=== PATIENT | male | born 1960 | race African-American/Black ===

== ENCOUNTER → 2021-03-20 | Outpatient (CLI) | payer BC ==
--- NOTE | 2021-03-20 11:42 | KCIC ---
EXAM: Abdomen sonogram. HISTORY: Pain. TECHNIQUE: Magnetic imaging of the abdomen was performed. COMPARISON: None. FINDINGS: The liver is enlarged. There is hepatic steatosis. There is a 2.0 x 1.8 x 1.4 cm hypoechoic lesion within the liver adjacent to the gallbladder fossa. No additional focal hepatic lesion is see n. The gallbladder is unremarkable. The common bile duct is obscured. The kidneys are normal in size. There is no hydronephrosis. There is a 1.8 cm suspected cyst within the mid zone of the left kidney. The spleen is normal in size. The pancreas, aorta and inferior vena cava are predominantly obscured due to bowel gas and body habitus. IMPRESSION: 1. Hepatomegaly and hepatic steatosis. 2. 2.0 cm hypoechoic lesion within the liver adjacent to the gallbladder fossa. This may be due to ge ographic fatty deposition. However, the possibility of neoplasm is not excluded sonographically. This can be better assessed with a liver protocol CT or MRI. 3. Small renal cysts. Follow-up is not routinely performed for simple cysts. 4. Obscured common bile duct and predominantly obscured midline structures due to bowel gas and body habitus. Electronically signed by: Mela Pope MD (03/20/2021 11:40 AM) [id number]
== END ==
LOC: KCIC US 10:21
PROVIDERS: ATTEND Family Medicine
DX: R16.0 Hepatomegaly, not elsewhere classified (principal); K76.0 Fatty (change of) liver, not elsewhere classified; K76.9 Liver disease, unspecified; N28.1 Cyst of kidney, acquired; K83.8 Other specified diseases of biliary tract; R10.84 Generalized abdominal pain
CPT/HCPCS: 76700

== ENCOUNTER → 2021-03-28 | Outpatient (CLI) | payer BC ==
[~2021-03-28] MED LIST: AMLO2.5T5 PO; DULA0.75 SQ; GLYB2.5T2 PO; IOHEXOL 300 MG/ML 100ML VIAL. IV ONE; METF500T16 PO
--- NOTE | 2021-03-28 14:21 | KCIC ---
EXAMINATION: CT abdomen with and without IV contrast. INDICATION:60 years, Male, liver abnormality seen on recent ultrasound. Further evaluation. TECHNIQUE: Axial CT images of the abdomen was obtained. Coronal and sagittal reformatted performed. COMPARISON: Ultrasound dated 03/20/2021. Exposure: One or more of the following individualized dose reduction techniques were utilized for thi s examination: 1. Automated exposure control 2. Adjustment of the mA and/or kV according to patient size 3. Use of iterative reconstruction technique. FINDINGS: LOWER CHEST: Unremarkable. ABDOMEN: Normal size and morphology of the liver with homogeneous enhancement. Diffuse hepatic steatosis. Prev iously seen hypoechoic lesion adjacent to the gallbladder are consistent with focal fatty sparing are a. There is a 3.1 x 2.6 x 1.9 cm arterial enhancing lesion in hepatic segment 8 demonstrates persiste nt enhancement on venous and delayed images (series 6 image 28). Gallbladder, biliary ducts, spleen, pancreas, and adrenals are unremarkable. Normal symmetric enhance ment of the kidneys with no hydronephrosis or nephrolithiasis. Simple bilateral parapelvic renal cyst s. There is a 1.8 cm simple appearing cysts in the interpolar left kidney. Nonspecific bilateral laina nephric fat stranding. Small hiatal hernia. No bowel dilation. Normal caliber abdominal aorta. Mesenteric arteries and buster l vein are patent. No pneumoperitoneum or ascites. No lymphadenopathy in the abdomen by size criteria size. MUSCULOSKELETAL: No acute osseous process. Small fat-containing umbilical hernia. IMPRESSION: 1. Hepatic steatosis with focal fatty sparing adjacent to the gallbladder, corresponds to previously seen hypoechoic lesion. 2. A 3.1 cm arterial enhancing lesion in hepatic segment 8 with persistent enhancement on venous and delayed images. Differential includes includes but not limited to perfusion changes, hemangioma or f ocal nodular hyperplasia. Recommend MRI abdomen with Eovist contrast to further evaluate. 3. Small hiatal hernia. 4. Simple bilateral parapelvic and left renal cysts. 5. Nonspecific bilateral perinephric fat stranding. Correlate for urinary tract infection. Electronically signed by: Eric Saleem MD (03/28/2021 2:19 PM) [facility]
== END ==
LOC: KCIC CT 10:02
PROVIDERS: ATTEND Family Medicine
DX: K76.0 Fatty (change of) liver, not elsewhere classified (principal); N28.1 Cyst of kidney, acquired; K44.9 Diaphragmatic hernia without obstruction or gangrene; K42.9 Umbilical hernia without obstruction or gangrene; N39.0 Urinary tract infection, site not specified
CPT/HCPCS: 74170; Q9967